=== PATIENT | male | born 1985 | race Caucasian/White ===

== ENCOUNTER → 2018-08-02 | Emergency (ER) | payer OTHER ==
[~2018-08-02] VITALS: Ht 177.8 cm; Wt 81.6 kg
[~2018-08-02] MED LIST: AZITHROMYCIN 500MG/ 250ML 250 ML IV SCH; DIVA500T53; HYDRX10T; LORazepam 2MG/ML-1ML VIAL IV ONE; SODIUM CHLORIDE 0.9% 1,000 ML IVB ONE; cefTRIAXone 1GM/50ML D5W 50 ML IV SCH; diphenhdrAMINE HCL 50 MG/1 ML VL IV ONE
[2018-08-02 17:53] LABS: Basophils # (auto) 0 uL; Basophils % (auto) 0.5 % (0.0-2.0); Eosinophils # (auto) 0.1 uL; Eosinophils % (auto) 1.4 % (0.0-7.0); Hematocrit 39.8 % (41.0-53.0); Hemoglobin 13.4 g/dL (13.5-17.5); Lymphocytes # (auto) 1.6 uL; Lymphocytes % (auto) 23.3 % (10.0-50.0); Mean Corpuscular Hemoglobin 31.3 pg (28.0-32.0); Mean Corpuscular Hgb Conc. 33.7 g/dL (32.0-36.0); Mean Corpuscular Volume 92.7 fL (80.0-100.0); Monocytes # (auto) 0.6 uL; Monocytes % (auto) 9.4 % (0.0-12.0); Neutrophils # (auto) 4.4 uL; Neutrophils % (auto) 65.4 % (37.0-80.0); Platelet Count (auto) 239 10^3/uL (140-450); Red Blood Cells 4.29 10^6/uL (4.5-5.90); Red Cell Distribution Width 13.4 % (11.8-14.3); White Blood Cell 6.7 10^3/uL (4.4-10.8)
[2018-08-02 18:05] LABS: Acetaminophen < 2.0 ug/mL (10-30); Salicylate 2.4 mg/dL (2.8-20.0)
[2018-08-02 18:07] LABS: Anion Gap 9 (5-15); BUN/Creatinine Ratio 14.7; Blood Alcohol < 3.0 mg/dL (0-5); Blood Urea Nitrogen 11 mg/dL (7-18); Calcium 7.8 mg/dL (8.5-10.1); Carbon Dioxide 22 mmol/L (21-32); Chloride 113 mmol/L (98-107); GFR African American 155 mL/min; GFR Non-African American 128 mL/min; Glucose 122 mg/dL (74-106); Potassium 3.5 mmol/L (3.5-5.1); Sodium 144 mmol/L (136-145)
[2018-08-02 18:10] LABS: Alanine Aminotransferase 19 U/L (16-61); Alkaline Phosphatase 59 U/L (45-117); Aspartate Aminotransferase 14 U/L (15-37); Bilirubin, Total 0.3 mg/dL (0.2-1.0); Total Protein 5.8 g/dL (6.4-8.2)
[2018-08-02] MEDS: SODIUM CHLORIDE 0.9% 1,000 ML IV SCH (19:45)
[2018-08-02 22:17] LABS: Urine Bacteria NONE SEEN /hpf (None Seen); Urine Blood Negative /uL (Negative); Urine Mucus FEW (None Seen); Urine Specific Gravity 1.005 (1.001-1.035); Urine WBC 1 /hpf (0 - 3)
[2018-08-02 22:30] LABS: Alcohol, Urine < 3.0 mg/dL (0-5); Amphetamine Screen, Urine NEGATIVE (NEGATIVE); Barbiturate Scree,Urine NEGATIVE (NEGATIVE); Benzodiazephine Screen, Urine NEGATIVE (NEGATIVE); Cannabinoid Screen, Urine POSITIVE (NEGATIVE); Cocaine Screen, Urine NEGATIVE (NEGATIVE); Opiate Scree,Urine NEGATIVE (NEGATIVE); Phencyclidine Screen, Urine NEGATIVE (NEGATIVE)
[2018-08-03] MEDS: SODIUM CHLORIDE 0.9% 1,000 ML IV SCH (03:54)
[2018-08-03 06:51] LABS: Basophils # (auto) 0 uL; Basophils % (auto) 0.2 % (0.0-2.0); Eosinophils # (auto) 0.1 uL; Eosinophils % (auto) 0.7 % (0.0-7.0); Hematocrit 40.5 % (41.0-53.0); Lymphocytes # (auto) 1.2 uL; Lymphocytes % (auto) 10.8 % (10.0-50.0); Mean Corpuscular Hemoglobin 31.8 pg (28.0-32.0); Mean Corpuscular Hgb Conc. 34.4 g/dL (32.0-36.0); Mean Corpuscular Volume 92.5 fL (80.0-100.0); Monocytes # (auto) 1.1 uL; Monocytes % (auto) 9.4 % (0.0-12.0); Neutrophils % (auto) 78.9 % (37.0-80.0); Platelet Count (auto) 236 10^3/uL (140-450); Red Blood Cells 4.38 10^6/uL (4.5-5.90); Red Cell Distribution Width 13.4 % (11.8-14.3); White Blood Cell 11.4 10^3/uL (4.4-10.8)
[2018-08-03 07:05] LABS: Albumin 3.1 g/dL (3.4-5.0); Calcium 8.3 mg/dL (8.5-10.1); Potassium 3.9 mmol/L (3.5-5.1)
[2018-08-03 07:07] LABS: BUN/Creatinine Ratio 9.2
[2018-08-03 07:10] LABS: Bilirubin, Total 0.6 mg/dL (0.2-1.0); Total Protein 6.2 g/dL (6.4-8.2)
[2018-08-03] MEDS: SOD CHL 0.45% 1,000 ML IV SCH ×2 (11:45→21:45)
[2018-08-04] MEDS: SOD CHL 0.45% 1,000 ML IV SCH ×2 (07:45→22:10)
[2018-08-04 19:22] LABS: Basophils # (auto) 0.1 uL; Eosinophils # (auto) 0.3 uL; Eosinophils % (auto) 2.8 % (0.0-7.0); Hematocrit 44.4 % (41.0-53.0); Hemoglobin 15.3 g/dL (13.5-17.5); Lymphocytes # (auto) 2.6 uL; Lymphocytes % (auto) 28.8 % (10.0-50.0); Mean Corpuscular Hgb Conc. 34.3 g/dL (32.0-36.0); Mean Corpuscular Volume 93.1 fL (80.0-100.0); Monocytes # (auto) 0.9 uL; Monocytes % (auto) 9.9 % (0.0-12.0); Neutrophils # (auto) 5.2 uL; Neutrophils % (auto) 57.5 % (37.0-80.0); Nucleated Red Blood Cells % 0.1 %; Platelet Count (auto) 258 10^3/uL (140-450); Red Blood Cells 4.77 10^6/uL (4.5-5.90); Red Cell Distribution Width 13.1 % (11.8-14.3); White Blood Cell 9.1 10^3/uL (4.4-10.8)
[2018-08-04 19:32] LABS: Albumin 3.3 g/dL (3.4-5.0); Calcium 8.2 mg/dL (8.5-10.1); Potassium 3.9 mmol/L (3.5-5.1)
[2018-08-04 19:34] LABS: Bilirubin, Total 0.3 mg/dL (0.2-1.0); Total Protein 7.1 g/dL (6.4-8.2)
[2018-08-04 22:37] VITALS: BP 135/91
== END | disposition short-term general hospital (02) ==
LOC: EDUNIT# 16:25 → EDBD 16:26 → ER 16:28 → UNDOADMIN 19:34 → TELE 19:34 → ER 08-04 23:05
DX: T43.592A Poisoning by other antipsychotics and neuroleptics, intentional self-harm, initial encounter (principal); J18.9 Pneumonia, unspecified organism; F20.9 Schizophrenia, unspecified; F41.9 Anxiety disorder, unspecified; F31.9 Bipolar disorder, unspecified; F17.210 Nicotine dependence, cigarettes, uncomplicated; F15.10 Other stimulant abuse, uncomplicated; F12.10 Cannabis abuse, uncomplicated; Y92.89 Other specified places as the place of occurrence of the external cause
CPT/HCPCS: 36415; 51702; 71045; 80053; 80307; 80320; 80329; 81001; 82962; 83735; 85025; 87040; 93005; 94761; 96365; 96368; 99291; J7030; 83690; 96360; 96361; G0378

== ENCOUNTER 2019-01-27 18:12 | Emergency (ER) | payer OTHER ==
[~2019-01-27] VITALS: Ht 177.8 cm; Wt 86.2 kg
[~2019-01-27 18:12] MED LIST changes: -AZITHROMYCIN 500MG/ 250ML 250 ML IV SCH; -LORazepam 2MG/ML-1ML VIAL IV ONE; -SODIUM CHLORIDE 0.9% 1,000 ML IVB ONE; -cefTRIAXone 1GM/50ML D5W 50 ML IV SCH; -diphenhdrAMINE HCL 50 MG/1 ML VL IV ONE
[2019-01-27 18:29] VITALS: BP 125/91
[2019-01-27] MEDS ORDERED: SODIUM CHLORIDE 0.9% 1,000 ML IV ONE (19:30)
[2019-01-27 23:08] LABS: Alcohol, Urine < 3.0 mg/dL (0-5); Amphetamine Screen, Urine POSITIVE (NEGATIVE); Barbiturate Scree,Urine NEGATIVE (NEGATIVE); Benzodiazephine Screen, Urine NEGATIVE (NEGATIVE); Cannabinoid Screen, Urine POSITIVE (NEGATIVE); Cocaine Screen, Urine NEGATIVE (NEGATIVE); Opiate Scree,Urine NEGATIVE (NEGATIVE); Phencyclidine Screen, Urine NEGATIVE (NEGATIVE)
== END 2019-01-28 00:35 | disposition home or self-care (01) ==
LOC: EDBD 18:12 → ER 18:30
DX: F41.9 Anxiety disorder, unspecified (principal); F15.10 Other stimulant abuse, uncomplicated; F32.9 Major depressive disorder, single episode, unspecified; F20.9 Schizophrenia, unspecified; F17.210 Nicotine dependence, cigarettes, uncomplicated; Z79.899 Other long term (current) drug therapy
CPT/HCPCS: 80307; 93005; 94761; 99284; J7030

== ENCOUNTER 2019-03-09 07:12 | Emergency (ER) | payer OTHER ==
[~2019-03-09] VITALS: Ht 177.8 cm; Wt 79.4 kg
[2019-03-09 07:26] VITALS: BP 137/88
== END 2019-03-09 07:33 | disposition home or self-care (01) ==
LOC: ER 07:15
DX: F41.9 Anxiety disorder, unspecified (principal); F17.210 Nicotine dependence, cigarettes, uncomplicated; F12.10 Cannabis abuse, uncomplicated; F15.10 Other stimulant abuse, uncomplicated

== ENCOUNTER 2020-12-05 11:21 | Inpatient (IN) | payer MEDICAID, OTHER ==
[~2020-12-05] VITALS: Ht 172.7 cm; Wt 81.6 kg
[~2020-12-05 11:21] MED LIST changes: +DIVA500T2; -DIVA500T53
[2020-12-05 12:52] LABS: Basophils # (auto) 0.1 10 ^3/uL (0-0.2); Basophils % (auto) 0.8 % (0.0-2.0); Eosinophils # (auto) 0 10 ^3/uL (0-0.8); Eosinophils % (auto) 0.3 % (0.0-7.0); Hematocrit 44.2 % (41.0-53.0); Hemoglobin 15.4 g/dL (13.5-17.5); Lymphocytes # (auto) 1.3 10 ^3/uL (0.4-5.4); Lymphocytes % (auto) 10.6 % (10.0-50.0); Mean Corpuscular Hemoglobin 32.1 pg (28.0-32.0); Mean Corpuscular Hgb Conc. 34.8 g/dL (32.0-36.0); Mean Corpuscular Volume 92.4 fL (80.0-100.0); Monocytes # (auto) 0.8 10 ^3/uL (0-1.3); Monocytes % (auto) 6.2 % (0.0-12.0); Neutrophils % (auto) 82.1 % (37.0-80.0); Platelet Count (auto) 264 10^3/uL (140-450); Red Blood Cells 4.78 10^6/uL (4.5-5.90); White Blood Cell 12.1 10^3/uL (4.4-10.8)
[2020-12-05] MEDS ORDERED: CALCIUM GLUC 1,000mg/50ml-NS 50 ML IV ONE ×6 (13:00→20:30)
[2020-12-05 13:02] LABS: Albumin 3.9 g/dL (3.4-5.0); Anion Gap 10 (5-15); Blood Alcohol < 3.0 mg/dL (0-5); Blood Urea Nitrogen 22 mg/dL (7-18); Calcium 8.9 mg/dL (8.5-10.1); Carbon Dioxide 20 mmol/L (21-32); Chloride 106 mmol/L (98-107); Glucose 145 mg/dL (74-106); Magnesium 2.5 mg/dL (1.6-2.6); Potassium 4.1 mmol/L (3.5-5.1); Sodium 136 mmol/L (136-145)
[2020-12-05 13:06] LABS: Alanine Aminotransferase 26 U/L (16-61); Alkaline Phosphatase 73 U/L (45-117); Aspartate Aminotransferase 13 U/L (15-37); Bilirubin, Total 0.5 mg/dL (0.2-1.0); GFR African American 34 mL/min; GFR Non-African American 28 mL/min; Total Protein 7.2 g/dL (6.4-8.2)
[2020-12-05 13:14] LABS: Salicylate 2.1 mg/dL (2.8-20.0)
[2020-12-05 13:20] LABS: Acetaminophen < 2.0 ug/mL (10-30)
[2020-12-05 15:27] LABS: Albumin 3.2 g/dL (3.4-5.0); BUN/Creatinine Ratio 9.8; Potassium 4.4 mmol/L (3.5-5.1)
[2020-12-05 15:30] LABS: Bilirubin, Total 0.5 mg/dL (0.2-1.0)
[2020-12-05] MEDS ORDERED: ONDANSETRON HCL 4 MG/2 ML VIAL IV PRN (15:30)
[2020-12-05] MEDS ORDERED: ACETAMINOPHEN 325 MG TAB PO PRN (15:30)
[2020-12-05] MEDS: SODIUM CHLORIDE 0.9% 1,000 ML IV SCH ×2 (15:38→22:44)
[2020-12-05] MEDS ORDERED: SODIUM CHLORIDE 0.9% 3,000 ML IV ONE (15:45)
[2020-12-05 20:09] LABS: Urine Bacteria NONE SEEN /hpf (None Seen); Urine Blood Negative /uL (Negative); Urine Hyaline Cast FEW /lpf (0 - 2); Urine Mucus FEW (None Seen); Urine Specific Gravity 1.011 (1.001-1.035); Urine WBC 3 /hpf (0 - 3)
[2020-12-05] MEDS ORDERED: CALCIUM GLUC 1,000mg/50ml-NS 150 ML IV ONE (20:28)
[2020-12-05 20:47] LABS: Alcohol, Urine < 3.0 mg/dL (0-10); Amphetamine Screen, Urine NEGATIVE (NEGATIVE); Barbiturate Scree,Urine NEGATIVE (NEGATIVE); Benzodiazephine Screen, Urine NEGATIVE (NEGATIVE); Cannabinoid Screen, Urine POSITIVE (NEGATIVE); Cocaine Screen, Urine NEGATIVE (NEGATIVE); Opiate Scree,Urine NEGATIVE (NEGATIVE); Phencyclidine Screen, Urine NEGATIVE (NEGATIVE)
[2020-12-05] MEDS ORDERED: NICOTINE 21MG/24 HR TOPICAL PATCH TD ONE (22:45)
[2020-12-05] MEDS ORDERED: DEXTROSE (50%) 50ML SYRG IV PRN (23:15)
[2020-12-05] MEDS ORDERED: DEXTROSE 10% 1,000 ML IV SCH (23:15)
[2020-12-05] MEDS ORDERED: NOREPINEPHRINE 8 MG/250ML KIT 250 ML IV SCH (23:15)
[2020-12-05] MEDS ORDERED: DEXTROSE (50%) 50ML SYRG IV ONE (23:15)
[2020-12-05] MEDS ORDERED: InsuLIN R (HUMAN) 100 UNITS in SODIUM CHL 0.9% 99 ML IV SCH (23:15)
[2020-12-05] MEDS ORDERED: InsuLIN REG 1unit/0.01ml Soln (100units/ml) IV ONE (23:15)
[2020-12-05] MEDS ORDERED: NOREPINEPHRINE 8 MG/250ML KIT 250 ML IV ONE (23:53)
[2020-12-05] MEDS ORDERED: InsuLIN REG 1unit/0.01ml Soln (100units/ml) ONE (23:54)
[2020-12-06] MEDS ORDERED: ACCU-CHEK COMFORT CURVE STRIP VI SCH
[2020-12-06] MEDS: SODIUM CHLORIDE 0.9% 1,000 ML IV SCH (04:51)
[2020-12-06] MEDS: NICOTINE 21MG/24 HR TOPICAL PATCH TD SCH (11:03)
[2020-12-06] MEDS ORDERED: clonazePAM 0.5 MG TAB PO ONE (11:45)
[2020-12-07] MEDS: clonazePAM 0.5 MG TAB PO SCH ×3 (00:01→23:43)
[2020-12-07] MEDS ORDERED: PANTOPRAZOLE 40 MG TAB PO ONE (00:15)
[2020-12-07] MEDS ORDERED: ALUM & MAG HYDROX-SIMETH LIQ(MAALOX) 30 ML PO ONE (00:15)
[2020-12-07] MEDS ORDERED: LIDOCAINE VISCOUS 2% 15ML UD PO ONE (00:15)
[2020-12-07] MEDS: NICOTINE 21MG/24 HR TOPICAL PATCH TD SCH (10:56)
[2020-12-08] MEDS ORDERED: PANTOPRAZOLE 40 MG TAB PO ONE (00:15)
[2020-12-08 04:34] VITALS: BP 118/56
[2020-12-08] MEDS ORDERED: NICOTINE 21MG/24 HR TOPICAL PATCH TD SCH (05:30)
[2020-12-08] MEDS ORDERED: QUEtiapine FUMARATE 25 MG TAB PO SCH ×2 (08:10→12:00)
[2020-12-08] MEDS ORDERED: QUEtiapine FUMARATE 25 MG TAB ONE (08:15)
[2020-12-08] MEDS ORDERED: QUEtiapine FUMARATE 100 MG TAB PO SCH (22:00)
== END 2020-12-08 09:30 | DRG 816 ==
LOC: ER 11:21 → EDBD 11:21 → TELE 15:16 → UNDODISIN 12-06 10:50
PROVIDERS: ADMIT Hospitalist; ATTEND Hospitalist
DX: T46.1X2A Poisoning by calcium-channel blockers, intentional self-harm, initial encounter (principal); G92 Toxic encephalopathy; F31.64 Bipolar disorder, current episode mixed, severe, with psychotic features; I95.2 Hypotension due to drugs; F19.10 Other psychoactive substance abuse, uncomplicated; F60.3 Borderline personality disorder; F17.210 Nicotine dependence, cigarettes, uncomplicated; Z82.49 Family history of ischemic heart disease and other diseases of the circulatory system; Z91.5 Personal history of self-harm; F41.9 Anxiety disorder, unspecified; Z20.822 Contact with and (suspected) exposure to COVID-19; T43.592A Poisoning by other antipsychotics and neuroleptics, intentional self-harm, initial encounter; I10 Essential (primary) hypertension
CPT/HCPCS: 36415; 71045; 80053; 80307; 80320; 80329; 81001; 83735; 85025; 87426; 93005; 96361; 96365; 96366; 96367; 96375; G0378; J1815; J2405

== ENCOUNTER 2021-07-02 12:56 | Emergency (ER) | payer MEDICAID ==
[~2021-07-02] VITALS: Ht 177.8 cm; Wt 88.5 kg
[2021-07-02 12:56] VITALS: BP 123/85
== END 2021-07-02 21:46 | disposition left against medical advice (07) ==
LOC: ER 12:56
DX: M79.662 Pain in left lower leg (principal); M79.661 Pain in right lower leg; Z53.21 Procedure and treatment not carried out due to patient leaving prior to being seen by health care provider

== ENCOUNTER 2021-08-17 09:24 | Inpatient (IN) | payer MEDICAID ==
[~2021-08-17] VITALS: Ht 177.8 cm; Wt 91.2 kg
[2021-08-17 11:37] LABS: Basophils % (auto) 0.2 % (0.0-2.0); Eosinophils # (auto) 0 10 ^3/uL (0-0.8); Hemoglobin 17.7 g/dL (13.5-17.5); Mean Corpuscular Volume 90.5 fL (80.0-100.0)
[2021-08-17 11:41] LABS: Basophils # (auto) 0 10 ^3/uL (0-0.2); Eosinophils % (auto) 0.1 % (0.0-7.0); Hematocrit 51.2 % (41.0-53.0); Lymphocytes # (auto) 1.1 10 ^3/uL (0.4-5.4); Lymphocytes % (auto) 4.2 % (10.0-50.0); Mean Corpuscular Hemoglobin 31.3 pg (28.0-32.0); Mean Corpuscular Hgb Conc. 34.6 g/dL (32.0-36.0); Monocytes # (auto) 2.2 10 ^3/uL (0-1.3); Monocytes % (auto) 8.4 % (0.0-12.0); Neutrophils # (auto) 22.4 10 ^3/uL (1.6-8.6); Neutrophils % (auto) 87.1 % (37.0-80.0); Nucleated Red Blood Cells % 0.6 %; Red Blood Cells 5.65 10^6/uL (4.5-5.90); Red Cell Distribution Width 13.3 % (11.8-14.3)
[2021-08-17 12:00] LABS: Albumin 5.2 g/dL (3.4-5.0); Calcium 9.9 mg/dL (8.5-10.1); Potassium 4.1 mmol/L (3.5-5.1)
[2021-08-17 12:01] LABS: Salicylate 3.2 mg/dL (2.8-20.0)
[2021-08-17 12:05] LABS: White Blood Cell 24.7 10^3/uL (4.4-10.8)
[2021-08-17 12:06] LABS: BUN/Creatinine Ratio 13.7; Bilirubin, Total 0.7 mg/dL (0.2-1.0); Total Protein 9.5 g/dL (6.4-8.2)
[2021-08-17 12:31] LABS: Acetaminophen < 2.0 ug/mL (10-30)
[2021-08-17] MEDS ORDERED: SODIUM CHLORIDE 0.9% 500 ML IV ONE (17:00)
[2021-08-17] MEDS ORDERED: SODIUM CHLORIDE 0.9% 1,000 ML IV ONE ×2 (17:00→21:00)
[2021-08-17] MEDS ORDERED: PIPERACILLIN-TAZOB 3.375GM 100 ML IV ONE (17:00)
[2021-08-17] MEDS ORDERED: VANCOMYCIN 1GM/250ML 250 ML IV ONE (17:00)
[2021-08-17 18:52] LABS: Lactic Acid w/Reflex 2.7 mmol/L (0.4-2.0)
[2021-08-17] MEDS ORDERED: ACETAMINOPHEN 500 MG TAB PO ONE (19:30)
[2021-08-17] MEDS ORDERED: LORazepam 2MG/ML-1ML VIAL IV ONE ×2 (21:00→21:45)
[2021-08-17] MEDS ORDERED: diphenhdrAMINE HCL 50 MG/1 ML VL IV ONE (21:45)
[2021-08-17] MEDS ORDERED: HALOPERIDOL LACTATE 5 MG/ML INJ VIAL IM ONE (21:45)
[2021-08-17] MEDS ORDERED: HALOPERIDOL LACTATE 5 MG/ML INJ VIAL ONE (22:05)
[2021-08-17 22:11] LABS: Amphetamine Screen, Urine POSITIVE (NEGATIVE); Barbiturate Scree,Urine NEGATIVE (NEGATIVE); Benzodiazephine Screen, Urine NEGATIVE (NEGATIVE); Cannabinoid Screen, Urine POSITIVE (NEGATIVE); Cocaine Screen, Urine NEGATIVE (NEGATIVE); Opiate Scree,Urine NEGATIVE (NEGATIVE); Phencyclidine Screen, Urine NEGATIVE (NEGATIVE); Urine Bacteria NONE SEEN /hpf (None Seen); Urine Blood TRACE /uL (Negative); Urine Hyaline Cast FEW /lpf (0 - 2); Urine Mucus FEW (None Seen); Urine WBC 4 /hpf (0 - 3)
[2021-08-17 23:04] LABS: Basophils # (auto) 0.1 10 ^3/uL (0-0.2); Basophils % (auto) 0.4 % (0.0-2.0); Eosinophils # (auto) 0 10 ^3/uL (0-0.8); Hematocrit 40.1 % (41.0-53.0); Lymphocytes # (auto) 1.5 10 ^3/uL (0.4-5.4); Lymphocytes % (auto) 8.1 % (10.0-50.0); Mean Corpuscular Hemoglobin 31.5 pg (28.0-32.0); Mean Corpuscular Volume 90.1 fL (80.0-100.0); Monocytes # (auto) 1.7 10 ^3/uL (0-1.3); Monocytes % (auto) 9.3 % (0.0-12.0); Neutrophils # (auto) 15.1 10 ^3/uL (1.6-8.6); Neutrophils % (auto) 82.2 % (37.0-80.0); Red Blood Cells 4.45 10^6/uL (4.5-5.90); Red Cell Distribution Width 13.3 % (11.8-14.3); White Blood Cell 18.3 10^3/uL (4.4-10.8)
[2021-08-18] VITALS (8 sets, daily range): BP systolic 101–142; BP diastolic 58–105
[2021-08-18] MEDS ORDERED: ACETAMINOPHEN 325 MG TAB PO PRN (00:45)
[2021-08-18] MEDS ORDERED: hydrALAZINE HCL 10 MG TAB PO PRN (00:45)
[2021-08-18] MEDS ORDERED: ONDANSETRON HCL 4 MG/2 ML VIAL IV PRN (00:45)
[2021-08-18] MEDS ORDERED: SODIUM CHLORIDE 0.9% 1,000 ML IV ONE (00:45)
[2021-08-18] MEDS ORDERED: HYDROcodone-ACET 5/325MG TAB PO PRN (00:45)
[2021-08-18] MEDS ORDERED: MORPHINE SULFATE INJECTION 2 MG/ML SYRG IV PRN (00:45)
[2021-08-18] MEDS ORDERED: LAMO25TA2 PO (00:55)
[2021-08-18] MEDS ORDERED: HYDR50TA69 PO (00:55)
[2021-08-18] MEDS ORDERED: OLAN20TA PO (00:56)
[2021-08-18] MEDS ORDERED: PIPERACILLIN-TAZOB 2.25GM 50 ML IV SCH (02:00)
[2021-08-18] MEDS: PIPERACILLIN-TAZOB 3.375GM 100 ML IV SCH ×3 (04:40→16:00)
[2021-08-18] MEDS: IPRATROPIUM BROM 0.5 MG/2.5ML INH SOL NEB SCH ×4 (06:04→23:38)
[2021-08-18] MEDS: lamoTRIgine 25 MG TAB PO SCH ×2 (10:00→22:51)
[2021-08-18] MEDS: FAMOTIDINE 20 MG TAB PO SCH (10:00)
[2021-08-18] MEDS ORDERED: hydrOXYzine 25 MG TAB or CAP PO PRN (10:00)
[2021-08-18] MEDS: SODIUM BICARBONATE 50ML VIAL 50 ML in SOD CHL 0.45% 1,000 ML IV SCH ×2 (11:00→13:00)
[2021-08-18 13:48] LABS: BUN/Creatinine Ratio 19.6; Calcium 8.5 mg/dL (8.5-10.1)
[2021-08-18] MEDS ORDERED: OLANZapine 5 MG TAB PO SCH (22:00)
[2021-08-19] MEDS: SODIUM BICARBONATE 50ML VIAL 50 ML in SOD CHL 0.45% 1,000 ML IV SCH (04:47)
[2021-08-19 05:00] VITALS: BP 94/44
[2021-08-19] MEDS: PIPERACILLIN-TAZOB 3.375GM 100 ML IV SCH ×2 (05:14→13:00)
[2021-08-19] MEDS: IPRATROPIUM BROM 0.5 MG/2.5ML INH SOL NEB SCH ×3 (06:16→12:20)
[2021-08-19 06:55] LABS: Basophils # (auto) 0 10 ^3/uL (0-0.2); Basophils % (auto) 0.4 % (0.0-2.0); Eosinophils # (auto) 0.1 10 ^3/uL (0-0.8); Eosinophils % (auto) 1.3 % (0.0-7.0); Hematocrit 39.8 % (41.0-53.0); Hemoglobin 13.8 g/dL (13.5-17.5); Lymphocytes # (auto) 2.2 10 ^3/uL (0.4-5.4); Lymphocytes % (auto) 22.3 % (10.0-50.0); Mean Corpuscular Hemoglobin 31.5 pg (28.0-32.0); Mean Corpuscular Hgb Conc. 34.6 g/dL (32.0-36.0); Mean Corpuscular Volume 91.1 fL (80.0-100.0); Monocytes % (auto) 10.2 % (0.0-12.0); Neutrophils # (auto) 6.4 10 ^3/uL (1.6-8.6); Neutrophils % (auto) 65.8 % (37.0-80.0); Nucleated Red Blood Cells % 0.1 %; Red Blood Cells 4.37 10^6/uL (4.5-5.90); Red Cell Distribution Width 12.8 % (11.8-14.3); White Blood Cell 9.8 10^3/uL (4.4-10.8)
[2021-08-19 06:57] LABS: Albumin 3.1 g/dL (3.4-5.0); Calcium 8.4 mg/dL (8.5-10.1)
[2021-08-19 07:01] LABS: BUN/Creatinine Ratio 17.3
[2021-08-19 07:03] LABS: Bilirubin, Total 0.8 mg/dL (0.2-1.0); Total Protein 6.3 g/dL (6.4-8.2)
[2021-08-19 09:00] VITALS: BP 97/61
[2021-08-19] MEDS: FAMOTIDINE 20 MG TAB PO SCH (10:00)
[2021-08-19] MEDS: lamoTRIgine 25 MG TAB PO SCH (10:00)
[2021-08-19] MEDS ORDERED: SODIUM CHLORIDE 0.9% 1,000 ML IV SCH (11:15)
[2021-08-19] MEDS ORDERED: AMOX-277 PO (13:00)
[2021-08-19 14:04] VITALS: BP 110/65
[2021-08-21 15:35] LABS: Hepatitis C Antibody Negative (Negative)
== END 2021-08-19 15:15 | disposition home or self-care (01) | DRG 720 ==
LOC: ER 09:24 → TELE 08-18 00:44 → TELE-WESTW 08-18 02:10
PROVIDERS: ADMIT Nurse Practitioner Family; ATTEND Internal Medicine
DX: A41.9 Sepsis, unspecified organism (principal); N17.0 Acute kidney failure with tubular necrosis; G93.41 Metabolic encephalopathy; J18.9 Pneumonia, unspecified organism; E86.0 Dehydration; R73.9 Hyperglycemia, unspecified; F12.10 Cannabis abuse, uncomplicated; F10.10 Alcohol abuse, uncomplicated; F17.210 Nicotine dependence, cigarettes, uncomplicated; R80.9 Proteinuria, unspecified; F31.9 Bipolar disorder, unspecified; N18.9 Chronic kidney disease, unspecified; F15.90 Other stimulant use, unspecified, uncomplicated; F29 Unspecified psychosis not due to a substance or known physiological condition; Z20.822 Contact with and (suspected) exposure to COVID-19; Z72.9 Problem related to lifestyle, unspecified; Z83.3 Family history of diabetes mellitus; Z82.49 Family history of ischemic heart disease and other diseases of the circulatory system; Z91.51 Personal history of suicidal behavior; Z81.8 Family history of other mental and behavioral disorders
CPT/HCPCS: 36415; 70450; 71045; 71250; 74176; 76775; 80048; 80053; 80307; 80329; 81001; 82306; 83036; 83605; 83970; 84100; 84484; 85025; 86803; 87040; 87086; 87340; 87426; 94640; 96361; 96365; 96367; 96372; 96375; 96376; G0378; J2543

== ENCOUNTER 2021-11-02 16:15 | Inpatient (IN) | payer MEDICAID ==
[~2021-11-02] VITALS: Ht 177.8 cm; Wt 82.9 kg
[~2021-11-02 16:15] MED LIST changes: +AMOX-277 PO; -DIVA500T2; +HYDR50TA69 PO; -HYDRX10T; +LAMO25TA2 PO; +OLAN20TA PO
[2021-11-02] MEDS ORDERED: hydrOXYzine HCL 10 MG TAB PO PRN (16:30)
[2021-11-02 17:45] LABS: Amphetamine Screen, Urine POSITIVE (NEGATIVE); Barbiturate Scree,Urine NEGATIVE (NEGATIVE); Benzodiazephine Screen, Urine NEGATIVE (NEGATIVE); Cocaine Screen, Urine NEGATIVE (NEGATIVE); Opiate Scree,Urine NEGATIVE (NEGATIVE); Phencyclidine Screen, Urine NEGATIVE (NEGATIVE)
[2021-11-02 17:54] LABS: Cannabinoid Screen, Urine POSITIVE (NEGATIVE)
[2021-11-02 18:18] LABS: Basophils # (auto) 0.1 10 ^3/uL (0-0.2); Basophils % (auto) 0.5 % (0.0-2.0); Eosinophils # (auto) 0 10 ^3/uL (0-0.8); Eosinophils % (auto) 0.1 % (0.0-7.0); Hematocrit 47.1 % (41.0-53.0); Hemoglobin 16.5 g/dL (13.5-17.5); Lymphocytes # (auto) 2.2 10 ^3/uL (0.4-5.4); Lymphocytes % (auto) 10.7 % (10.0-50.0); Mean Corpuscular Hemoglobin 30.5 pg (28.0-32.0); Mean Corpuscular Hgb Conc. 34.9 g/dL (32.0-36.0); Mean Corpuscular Volume 87.4 fL (80.0-100.0); Monocytes % (auto) 9.3 % (0.0-12.0); Neutrophils # (auto) 16.6 10 ^3/uL (1.6-8.6); Neutrophils % (auto) 79.4 % (37.0-80.0); Red Cell Distribution Width 14.1 % (11.8-14.3); White Blood Cell 20.9 10^3/uL (4.4-10.8)
[2021-11-02 18:30] LABS: Albumin 4.4 g/dL (3.4-5.0); Anion Gap 12 (5-15); BUN/Creatinine Ratio 21.5; Blood Alcohol < 3.0 mg/dL (0-5); Blood Urea Nitrogen 28 mg/dL (7-18); Calcium 9.7 mg/dL (8.5-10.1); Carbon Dioxide 26 mmol/L (21-32); Chloride 98 mmol/L (98-107); GFR African American 81 mL/min; GFR Non-African American 67 mL/min; Glucose 102 mg/dL (74-106); Potassium 4.3 mmol/L (3.5-5.1); Sodium 136 mmol/L (136-145)
[2021-11-02 18:34] LABS: Alanine Aminotransferase 107 U/L (16-61); Alkaline Phosphatase 91 U/L (45-117); Aspartate Aminotransferase 356 U/L (15-37); Bilirubin, Total 1.3 mg/dL (0.2-1.0); Total Protein 8.6 g/dL (6.4-8.2)
[2021-11-02 19:34] LABS: Urine Amorphous Crystal MANY /hpf (None Seen); Urine Bacteria NONE SEEN /hpf (None Seen); Urine Blood Negative /uL (Negative); Urine Mucus FEW (None Seen); Urine Specific Gravity 1.031 (1.001-1.035); Urine WBC 51 /hpf (0 - 3); Urine WBC Clumps PRESENT /hpf (None Seen)
[2021-11-02] MEDS ORDERED: NITROGLYCERIN 0.4 MG SL TAB SL PRN (23:00)
[2021-11-02] MEDS ORDERED: ONDANSETRON HCL 4 MG/2 ML VIAL IV PRN (23:00)
[2021-11-02] MEDS ORDERED: MORPHINE SULFATE INJ 2 MG/ml SYRG IV PRN ×2 (23:00)
[2021-11-03] MEDS ORDERED: NITROGLYCERIN 0.4 MG SL TAB SL PRN
[2021-11-03] MEDS: SODIUM CHLORIDE 0.9% 1,000 ML IV SCH ×2 (00:01→18:13)
[2021-11-03] MEDS ORDERED: LACTULOSE 20Gm/30ML SOLN PO SCH (06:00)
[2021-11-03] MEDS: PIPERACILLIN-TAZOB 3.375GM 100 ML IV SCH ×4 (06:15→20:23)
[2021-11-03 06:18] LABS: Basophils # (auto) 0.1 10 ^3/uL (0-0.2); Basophils % (auto) 0.5 % (0.0-2.0); Eosinophils # (auto) 0.1 10 ^3/uL (0-0.8); Eosinophils % (auto) 0.5 % (0.0-7.0); Hematocrit 43.7 % (41.0-53.0); Hemoglobin 15.6 g/dL (13.5-17.5); Lymphocytes # (auto) 1.6 10 ^3/uL (0.4-5.4); Mean Corpuscular Hemoglobin 31.4 pg (28.0-32.0); Mean Corpuscular Hgb Conc. 35.7 g/dL (32.0-36.0); Mean Corpuscular Volume 87.9 fL (80.0-100.0); Monocytes # (auto) 1.4 10 ^3/uL (0-1.3); Neutrophils # (auto) 14.2 10 ^3/uL (1.6-8.6); Nucleated Red Blood Cells % 0.1 %; Red Blood Cells 4.98 10^6/uL (4.5-5.90); Red Cell Distribution Width 13.7 % (11.8-14.3); White Blood Cell 17.4 10^3/uL (4.4-10.8)
[2021-11-03 06:28] LABS: Potassium 3.7 mmol/L (3.5-5.1)
[2021-11-03 06:40] LABS: Albumin 3.8 g/dL (3.4-5.0); BUN/Creatinine Ratio 25.8; Calcium 8.9 mg/dL (8.5-10.1); Total Protein 7.5 g/dL (6.4-8.2)
[2021-11-03 09:00] VITALS: BP_SYST 101; BP_SYST 109; BP_DIAS 58; BP_DIAS 62
[2021-11-03] MEDS ORDERED: ENOXAPARIN SOD 40 MG/0.4 ML SYRINGE SC SCH (10:00)
[2021-11-03] MEDS ORDERED: GADOTERATE MEG 7.5 MMOL/15ml INJ (0.5MMOL/ml) IV ONE (10:39)
[2021-11-03] MEDS ORDERED: metroNIDAZOLE 500MG/100ML 100 ML IV ONE (11:00)
[2021-11-03] MEDS ORDERED: OLANZapine 5 MG TAB PO ONE (11:00)
[2021-11-03 13:00] VITALS: BP 101/58
[2021-11-03 16:40] VITALS: BP 101/58
[2021-11-03 16:47] VITALS: BP 127/72
[2021-11-03] MEDS ORDERED: PIPERACILLIN-TAZOB 3.375GM 100 ML IV SCH (18:00)
[2021-11-03] MEDS: metroNIDAZOLE 500MG/100ML 100 ML IV SCH (21:23)
[2021-11-03 22:00] VITALS: BP 104/71
[2021-11-04] MEDS: PIPERACILLIN-TAZOB 3.375GM 100 ML IV SCH ×4 (01:54→21:11)
[2021-11-04 05:00] VITALS: BP 106/69
[2021-11-04] MEDS: SODIUM CHLORIDE 0.9% 1,000 ML IV SCH ×4 (05:26→17:02)
[2021-11-04] MEDS: metroNIDAZOLE 500MG/100ML 100 ML IV SCH ×3 (05:27→23:00)
[2021-11-04 05:49] LABS: Basophils # (auto) 0 10 ^3/uL (0-0.2); Basophils % (auto) 0.8 % (0.0-2.0); Eosinophils # (auto) 0.1 10 ^3/uL (0-0.8); Eosinophils % (auto) 1.6 % (0.0-7.0); Hematocrit 40.2 % (41.0-53.0); Hemoglobin 14.4 g/dL (13.5-17.5); Lymphocytes # (auto) 1.6 10 ^3/uL (0.4-5.4); Lymphocytes % (auto) 28.4 % (10.0-50.0); Mean Corpuscular Hemoglobin 31.4 pg (28.0-32.0); Mean Corpuscular Hgb Conc. 35.7 g/dL (32.0-36.0); Mean Corpuscular Volume 87.7 fL (80.0-100.0); Monocytes # (auto) 0.7 10 ^3/uL (0-1.3); Monocytes % (auto) 12.8 % (0.0-12.0); Neutrophils # (auto) 3.1 10 ^3/uL (1.6-8.6); Neutrophils % (auto) 56.4 % (37.0-80.0); Red Blood Cells 4.58 10^6/uL (4.5-5.90); Red Cell Distribution Width 13.5 % (11.8-14.3); White Blood Cell 5.5 10^3/uL (4.4-10.8)
[2021-11-04 06:02] LABS: Potassium 3.6 mmol/L (3.5-5.1)
[2021-11-04 06:10] LABS: Albumin 3.1 g/dL (3.4-5.0); BUN/Creatinine Ratio 15.2; Bilirubin, Total 0.8 mg/dL (0.2-1.0); Calcium 8.2 mg/dL (8.5-10.1); Total Protein 6.3 g/dL (6.4-8.2)
[2021-11-04 09:00] VITALS: BP 108/59
[2021-11-04] MEDS: OLANZapine 5 MG TAB PO SCH (10:05)
[2021-11-04 13:00] VITALS: BP 117/70
[2021-11-04 17:00] VITALS: BP 112/77
[2021-11-04 21:49] VITALS: BP 109/64
[2021-11-05] MEDS: SODIUM CHLORIDE 0.9% 1,000 ML IV SCH ×3 (01:00→17:40)
[2021-11-05 03:50] VITALS: BP 106/59
[2021-11-05] MEDS: PIPERACILLIN-TAZOB 3.375GM 100 ML IV SCH ×5 (06:08→21:19)
[2021-11-05] MEDS: metroNIDAZOLE 500MG/100ML 100 ML IV SCH ×3 (06:09→21:19)
[2021-11-05 07:24] LABS: Potassium 4.1 mmol/L (3.5-5.1)
[2021-11-05 07:31] LABS: BUN/Creatinine Ratio 12.7; Bilirubin, Total 0.4 mg/dL (0.2-1.0); Calcium 8.2 mg/dL (8.5-10.1); Total Protein 6.2 g/dL (6.4-8.2)
[2021-11-05 09:00] VITALS: BP 112/68
[2021-11-05] MEDS: OLANZapine 5 MG TAB PO SCH (12:02)
[2021-11-05 13:00] VITALS: BP 116/77
[2021-11-05 17:00] VITALS: BP 111/67
[2021-11-05 22:00] VITALS: BP 101/58
[2021-11-06] MEDS: SODIUM CHLORIDE 0.9% 1,000 ML IV SCH ×2 (02:00→09:55)
[2021-11-06] MEDS: PIPERACILLIN-TAZOB 3.375GM 100 ML IV SCH ×2 (02:32→07:40)
[2021-11-06 05:00] VITALS: BP 103/73
[2021-11-06] MEDS: metroNIDAZOLE 500MG/100ML 100 ML IV SCH (05:27)
[2021-11-06] MEDS: LITHIUM CARBONATE 300 MG TAB PO SCH ×2 (09:18→21:38)
[2021-11-06] MEDS ORDERED: ERGOCALCIFEROL 50,000 UNIT(1.25MG) CAP PO SCH (10:30)
[2021-11-06 12:17] VITALS: BP 112/69
[2021-11-06 12:48] LABS: Calcium 9.2 mg/dL (8.5-10.1); Potassium 4.2 mmol/L (3.5-5.1)
[2021-11-06 12:49] LABS: Albumin 3.2 g/dL (3.4-5.0); BUN/Creatinine Ratio 9.8
[2021-11-06 13:06] LABS: Bilirubin, Total 0.3 mg/dL (0.2-1.0); Total Protein 6.7 g/dL (6.4-8.2)
[2021-11-06 14:45] LABS: Hepatitis A Ab IgM Negative; Hepatitis B Core IgM Negative; Hepatitis C Antibody Negative (Negative)
[2021-11-06 16:41] VITALS: BP 105/67
[2021-11-06] MEDS: OLANZapine 5 MG TAB PO SCH (21:38)
[2021-11-06 22:00] VITALS: BP 106/57
[2021-11-07 05:00] VITALS: BP 117/65
[2021-11-07 09:10] VITALS: BP 120/69
[2021-11-07] MEDS: LITHIUM CARBONATE 300 MG TAB PO SCH ×2 (09:52→21:26)
[2021-11-07 13:04] VITALS: BP 118/73
[2021-11-07 17:21] VITALS: BP 121/87
[2021-11-07] MEDS: OLANZapine 5 MG TAB PO SCH (21:26)
[2021-11-07 21:38] VITALS: BP 112/63
[2021-11-08] MEDS: LITHIUM CARBONATE 300 MG TAB PO SCH (09:55)
[2021-11-08 10:30] VITALS: BP 112/63
== END 2021-11-08 11:30 | disposition home or self-care (01) | DRG 249 ==
LOC: EDBD 16:15 → ER 16:15 → EDUNIT# 16:15 → TELE 23:46 → UNDOADMIN 23:46 → TELE 11-03 00:24 → TELE-CENTR 11-03 08:21 → TELE 11-03 08:21 → CENTRAL 11-06 10:35 → TELE-CENTR 11-06 10:35 → UNDODISIN 11-08 11:30
PROVIDERS: ADMIT Nurse Practitioner Family; ATTEND Internal Medicine
DX: K52.9 Noninfective gastroenteritis and colitis, unspecified (principal); G93.41 Metabolic encephalopathy; E72.20 Disorder of urea cycle metabolism, unspecified; F20.9 Schizophrenia, unspecified; R45.851 Suicidal ideations; F12.10 Cannabis abuse, uncomplicated; F15.10 Other stimulant abuse, uncomplicated; F17.210 Nicotine dependence, cigarettes, uncomplicated; F31.9 Bipolar disorder, unspecified; F41.9 Anxiety disorder, unspecified; N28.9 Disorder of kidney and ureter, unspecified; Z20.822 Contact with and (suspected) exposure to COVID-19; Z83.3 Family history of diabetes mellitus
CPT/HCPCS: 36415; 70450; 70553; 71045; 76705; 80053; 80074; 80307; 80320; 80329; 81001; 82140; 85025; 86703; 87040; 87086; 93005; G0378; J2543; J3490